=== PATIENT | male | born 1950 | race Caucasian/White ===

== ENCOUNTER 2020-05-21 09:46 | Emergency (ER) | payer BC ==
[~2020-05-21] VITALS: Ht 188 cm; Wt 95.5 kg
[2020-05-21 09:52] VITALS: Ht 188 cm; Wt 95.5 kg
[2020-05-21] MEDS ORDERED: DIOVAN320 MG PO (09:53)
[2020-05-21] MEDS ORDERED: FLOMAX0.4 MG PO (09:54)
[2020-05-21 11:43] VITALS: BP 168/82
== END 2020-05-21 11:44 | disposition home or self-care (01) ==
LOC: D.ER 09:46
DX: S00.03XA Contusion of scalp, initial encounter (principal); W19.XXXA Unspecified fall, initial encounter; Y93.9 Activity, unspecified; Y92.9 Unspecified place or not applicable; I10 Essential (primary) hypertension; Z72.0 Tobacco use